=== PATIENT | male | born 1985 | race Caucasian/White ===

== ENCOUNTER 2017-03-20 08:12 | Emergency (ER) | payer BC ==
[2017-03-20] MEDS ORDERED: MORPHINE SULFATE 10 MG/ML IV ONE ×2 (08:32→09:15)
[2017-03-20] MEDS ORDERED: Adacel Vial IM ONE ×2 (08:32→08:48)
[2017-03-20] MEDS ORDERED: BENADRYL 50 MG/ML IV ONE (08:32)
[2017-03-20 08:41] LABS: VBG BASE EXCESS -0.5 (-2.0-2.0); VBG CARBOXYHEMOGLOBIN 2.2 % T HGB (0.0-6.9); VBG HCO3- 25.4 meq/L (22-28); VBG HEMOGLOBIN 15.9; VBG O2 SATURATION 59.5 (95-100); VBG POTASSIUM 3.6 (3.5-5.1); VBG pH 7.36 (7.32-7.42)
[2017-03-20] MEDS ORDERED: BENADRYL 50 MG/ML ONE (08:47)
[2017-03-20 08:48] LABS: BASOPHIL % 0.4 % (0.0-0.4); Eosinophil % 3.7 % (0.00-5.0); Granulocytes % 31.1 % (36.0-66.0); Lymphocytes % 54.8 % (24.0-44.0); Mean Cell Volume 88.9 fl (78-100); Mean Corpuscular Hemoglobin 31.5 pg (26-32); Platelet Count 244 K/mm3 (150-450); Red Blood Count 4.79 M/mm3 (4.1-5.6); Red Cell Distribution Width 12.9 % (11.5-14.0); White Blood Count 7.1 K/mm3 (4.0-10.5)
[2017-03-20] MEDS ORDERED: MORPHINE SULFATE 10 MG/ML ONE (08:48)
[2017-03-20] MEDS ORDERED: Lactated Ringers 1,000 ML IV ONE (08:48)
[2017-03-20] MEDS ORDERED: Lactated Ringers 1,000 ML IV SCH (09:00)
[2017-03-20 09:06] LABS: INR 1.02 (0.8-3.0); PROTIME 11.4 SECONDS (8.83-12.87)
[2017-03-20 09:11] LABS: ALBUMIN 4.4 g/dL (3.4-5.0); ALKALINE PHOSPHATASE 70 U/L (46-116); ANION GAP 13.3 MEQ/L (5-15); BLOOD UREA NITROGEN 17 mg/dL (9-20); CHLORIDE 103 mEq/L (98-107); Carbon Dioxide 25.4 mEq/L (21-32); ETHYL ALCOHOL < 0.010 % (0.00-0.01); Glucose 92 MG/DL (70-110); Potassium 3.6 mEq/L (3.5-5.1); SGOT/AST 83 U/L (15-37); SGPT/ALT 200 U/L (12-78); SODIUM 138 mEq/L (136-145); Total Protein 7.8 gm/dL (6.4-8.2)
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
[2017-03-20 09:41] VITALS: BP 139/79; PULSE 81; O2SAT 97
[2017-03-20 10:25] LABS: ADD URINE CULTURE? NO (NO); Bilirubin NEGATIVE (NEGATIVE); Blood NEGATIVE Ery/ul (0-5); COMPLETE URINE MICROSCOPIC? NO; Collection Type VOID; Glucose NEGATIVE (NEGATIVE); Leukocyte Esterase NEGATIVE (NEGATIVE)
== END 2017-03-20 09:58 | disposition short-term general hospital (02) ==
LOC: ED 08:12
DX: T20.00XA Burn of unspecified degree of head, face, and neck, unspecified site, initial encounter (principal); T23.002A Burn of unspecified degree of left hand, unspecified site, initial encounter; T20.07XA Burn of unspecified degree of neck, initial encounter; W40.1XXA Explosion of explosive gases, initial encounter; Y92.018 Other place in single-family (private) house as the place of occurrence of the external cause
CPT/HCPCS: 36000; 36415; 71010; 80053; 80307; 81002; 82805; 85025; 85610; 85730; 90471; 90715; 93041; 96360; 96361; 99285; G0481; J1200; J2270

== ENCOUNTER 2018-02-18 11:01 | Emergency (ER) | payer BC ==
[2018-02-18 11:11] VITALS: BP 142/94; PULSE 104; O2SAT 98
--- NOTE | 2018-02-18 11:38 | ERPHSYRPT ---
- History of Present Illness Time Seen by Provider: 02/18/18 11:30 Source: patient Exam Limitations: no limitations Patient Subjective Stated Complaint: Pt states "I have not been feeling myself for the past two weeks. I just found out that I will be going through a divorce and the stress is getting to me. I am having anxiety attacks and am having a hard time coping." Triage Nursing Assessment: Pt alert and oriented X 3, skin pwd. Pt slightly withdrawn. PT in no apparent respiratory distress. Pt asked if he was suicidal or homicidal and he stated no. Physician History: 33-year-old white male with history of anxiety, arrives with complaint of "I'm just not feeling myself for he told me 2 weeks 2 weeks, states he found out that he is going to be going through divorce, states he feels like stress is getting to him he states he is having anxiety. States he feels like he is not eating well feels nauseous. States he is having trouble coping. Patient denies any suicidal or homicidal ideation. Past medical history includes anxiety,. Past surgical history includes shoulder surgery left ankle surgery appendectomy. Social history patient states he occasionally drinks he denies illicit drug use he states he does use tobacco. Patient is currently on clonazepam, BuSpar, Effexor Inspect has been checked on this patient he was given clonazepam 0.5 mg #14 tablets on February 13, 2018. He states he has a few tablets left at home. Timing/Duration: week(s) (2 weeks) Severity: moderate Modifying Factors: Improves With: nothing Associated Symptoms: nausea, loss of appetite, malaise, other (anxiety), No vomiting, No abdominal pain, No shortness of breath, No heartburn, No diaphoresis, No cough, No chills, No chest pain, No fever, No headaches, No rash , No syncope, No seizure, No weakness Allergies/Adverse Reactions: sertraline [From Zoloft] Adverse Reaction (Verified 02/18/18 11:11) crying and depression Home Medications: Buspirone HCl 7.5 mg PO DAILY 02/18/18 [History] Clonazepam 0.5 mg [Klonopin 0.5 MG] 0.5 mg PO DAILY 02/18/18 [History] Venlafaxine HCl ER 75 mg [Effexor XR 75 MG] 75 mg PO DAILY 02/18/18 [ History] Hx Tetanus, Diphtheria Vaccination/Date Given: No Hx Influenza Vaccination/Date Given: No Hx Pneumococcal Vaccination/Date Given: No Immunizations Up to Date: Yes - Review of Systems Constitutional: No Fever, No Chills Eyes: No Symptoms Ears, Nose, & Throat: No Symptoms Respiratory: No Cough, No Dyspnea Cardiac: No Chest Pain, No Edema, No Syncope Abdominal/Gastrointestinal: No Abdominal Pain, No Nausea, No Vomiting, No Diarrhea Genitourinary Symptoms: No Dysuria Musculoskeletal: No Back Pain, No Neck Pain Skin: No Rash Neurological: No Dizziness, No Focal Weakness, No Sensory Changes Psychological: Anxiety, No Alcohol Abuse, No Drug Abuse, No Depression, No Suicidal Ideations, No Homicidal Ideations, No Emotional Lability, No Hallucinations, No Memory Loss, No Mood Changes Endocrine: No Symptoms All Other Systems: Reviewed and Negative - Past Medical History Pertinent Past Medical History: Yes GI Medical History: Hernia Psycho-Social History: Anxiety, Other - Past Surgical History Past Surgical History: Yes Gastrointestinal: Appendectomy Musculoskeletal: Orthopedic Surgery Other Surgical History: 2 right shoulder surgeries, left ankle surgery - Social History Smoking Status: Current every day smoker How long have you smoked: years Exposure to second hand smoke: Yes Drug Use: none Patient Lives Alone: No - Nursing Vital Signs Nursing Vital Signs: Initial Vital Signs Temperature 98.3 F 02/18/18 11:05 Pulse Rate 104 H 02/18/18 11:05 Respiratory Rate 18 02/18/18 11:05 Blood Pressure 142/94 02/18/18 11:05 O2 Sat by Pulse Oximetry 98 02/18/18 11:05 Pain Scale Pain Intensity 3 - Physical Exam General Appearance: mild distress Eye Exam: PERRL/EOMI, eyes nml inspection Ears, Nose, Throat Exam: normal ENT inspection, TMs normal, pharynx normal, moist mucous membranes Neck Exam: normal inspection, non-tender, supple, full range of motion Respiratory Exam: normal breath sounds, lungs clear, No respiratory distress Cardiovascular Exam: regular rate/rhythm, normal heart sounds, normal peripheral pulses Gastrointestinal/Abdomen Exam: soft, normal bowel sounds, No tenderness, No mass Back Exam: normal inspection, normal range of motion, No CVA tenderness, No vertebral tenderness Extremity Exam: normal inspection, normal range of motion, pelvis stable Neurologic Exam: alert, oriented x 3, cooperative, vehicle maintenance technician II-XII nml as tested, normal mood/affect, nml cerebellar function, nml station & gait, sensation nml, No motor deficits Skin Exam: normal color, warm, dry, No rash SpO2 Interpretation: normal (98%) SpO2: 98 Oxygen Delivery: Room Air - Course Nursing assessment & vital signs reviewed: Yes EKG Interpreted by Me: RATE (88 bpm), Sinus Rhythm, NORMAL AXIS, Other (EKG: Sinus rhythm, 88 bpm, normal axis, no acute ST or T wave changes, normal EKG) Ordered Tests: Active Orders 24 hr Category Date Time Status Accucheck STAT Care 02/18/18 11:29 Active EKG-ER Only STAT Care 02/18/18 11:21 Active - Progress Progress: unchanged, improved Progress Note: 02/18/18 11:34 This is a 33-year-old white male who arrives with complaint of feeling anxious for 2-3 weeks. Patient states he thinks he is going to be going through a divorce he has been anxious feels like he is having anxiety attacks. Patient has been seen by his family physician secondary to the same also a local nurse practitioner. Patient is on BuSpar, Effexor, clonopin 0.5 patient apparently has a appointment at 145 this afternoon. This has been verified with [facility] Patient has a essentially normal vitals with the exception of slight tachycardia mild elevation in blood pressure. He denies any substance abuse she denies homicidal or suicidal ideation. Will go ahead and obtain EKG on this patient as well as an Accu-Chek. I have told the patient I will not be prescribing more of his Clonopin this is something that he needs to do with his family DrSavi or [facility]. Patient appears to be stable at this time.. I expect patient to follow-up with [facility] at his scheduled appointment. 02/18/18 11:44 Patient's Accu-Chek is within normal limits. Patient's EKG normal sinus rhythm 88 beats for minute normal axis normal EKG. Patient does not appear to be in acute distress at this time and he is driving. He denies suicidal or homicidal ideation. Will write for Vistaril when necessary for the patient patient to keep his appointment with [facility] 02/18/18 11:48 The patient's nurse contacted [facility] she verified the patient's appointment at 1:45 PM, We inquired as to whether they needed further labs they stated as long as the patient was comfortable with his labs they did not want any other ones. We did check an EKG and an Accu-Chek. Will release patient. - Departure Time of Disposition: 11:46 Departure Disposition: Home Clinical Impression: Anxiety Condition: Fair Critical Care Time: No Referrals: ALMA CASTRO [Primary Care Provider] - Instructions: Anxiety, Adult (DC) Additional Instructions: Return home. Continue medications as prescribed by your family doctor. Follow-up with [facility] as previously arranged at 1:45 PM this afternoon. Vistaril as prescribed. Return for acute distress or for severe symptoms. Prescriptions: Hydroxyzine Pamoate [Vistaril] 50 mg PO TID PRN #10 capsule
== END 2018-02-18 12:03 | disposition home or self-care (01) ==
LOC: ED 11:01
DX: F41.9 Anxiety disorder, unspecified (principal); R11.0 Nausea; R53.81 Other malaise
CPT/HCPCS: 82962; 93005; 99283